=== PATIENT | female | born 1990 | race African-American/Black ===

== ENCOUNTER 2016-07-31 03:34 | Emergency (ER) | payer SELFPAY ==
[~2016-07-31] VITALS: Ht 175.3 cm; Wt 56.7 kg
[2016-07-31 04:26] VITALS: BP 139/91
== END 2016-07-31 04:26 | disposition home or self-care (01) ==
LOC: EME 03:34
PROC: 0HQ0XZZ Repair Scalp Skin, External Approach (ICD-10-PCS; principal; 2016-07-31)
DX: S01.01XA Laceration without foreign body of scalp, initial encounter (principal); Y04.0XXA Assault by unarmed brawl or fight, initial encounter; W18.39XA Other fall on same level, initial encounter
CPT/HCPCS: 99281; 99284